=== PATIENT | female | born 1975 | race Caucasian/White ===

== ENCOUNTER 2017-07-27 17:57 | Emergency (ER) | payer SELFPAY ==
[~2017-07-27] VITALS: Ht 177.8 cm; Wt 100.0 kg
[2017-07-27 18:06] VITALS: BP 133/79; PULSE 99; RESP 20; TEMP 98.2; O2SAT 97
[2017-07-27] MEDS ORDERED: MUPI2OIN TOPICAL (18:20)
[2017-07-27] MEDS ORDERED: CEPH-460 PO (18:20)
[2017-07-27] MEDS ORDERED: ERYTOIN10 EACH EYE (18:20)
--- NOTE | 2017-07-27 18:21 | PD ---
HPI Chief Complaint: ENT Complaint Time Seen by Provider: 18:15 Travel History International Travel<30 days: No Contact w/Intl Traveler<30days: No Traveled to known affect area: No History of Present Illness HPI 42-year-old female presents to the emergency department for left ear pain that started 4 days ago. She states the current pain is 4/10, aching and throbbing. She also states that she was having some eye discharge from her eyes bilaterally. She states this is improving, but has a history of conjunctivitis with similar symptoms in the past. No visual changes. Patient has no chronic medical problems and takes no prescribed medications. She denies reporting previous hysterectomy. No exacerbating or alleviating factors. Mild severity. PFSH Past Medical History Chemotherapy: Yes (2002) Immunizations Current: Yes Past Surgical History Hysterectomy: Yes Social History Alcohol Use: No Tobacco Use: Yes Substance Use: No Allergies-Medications (Allergen,Severity, Reaction): Coded Allergies: sumatriptan (Unverified Allergy, Severe, SWELLEN TONGUE, 10/18/16) doxycycline (Unverified Allergy, Mild, ITCHY SKIN, 10/18/16) minocycline (Unverified Allergy, Mild, ITCHY SKIN, 10/18/16) tigecycline (Unverified Allergy, Mild, ITCHY SKIN, 10/18/16) Review of Systems Except as stated in HPI: all other systems reviewed are Neg Physical Exam Narrative GENERAL: Well-nourished, well-developed female patient, ambulatory. Afebrile. SKIN: Focused skin assessment warm/dry. Patient has a small abrasion to the outer left ear with some mild surrounding erythema. HEAD: Normocephalic. Atraumatic. ENT: Mucosa pink and moist. No erythema or exudates. No uvular edema. No uvular , palatal, or tonsillar deviation. Airway patent. Nasal turbinates appear normal without nasal blood, purulent drainage or septal hematoma. Left tympanic membrane is mildly erythematous. Right tympanic membrane is without erythema or perforation. EYES: No scleral icterus. No injection or drainage. PERRLA. NECK: Supple, trachea midline. No JVD or lymphadenopathy. CARDIOVASCULAR: Regular rate and rhythm without murmurs, gallops, or rubs. RESPIRATORY: Breath sounds equal bilaterally. No accessory muscle use. Lung sounds are clear to auscultation. GASTROINTESTINAL: Abdomen soft, non-tender, nondistended. MUSCULOSKELETAL: No cyanosis, or edema. BACK: Nontender without obvious deformity. No CVA tenderness. Data Data Last Documented VS Vital Signs Date Time Temp Pulse Resp B/P (MAP) Pulse Ox O2 Delivery O2 Flow Rate FiO2 07/27/17 18:06 98.2 99 20 133/79 (97) 97 MDM Medical Decision Making Medical Screen Exam Complete: Yes Emergency Medical Condition: Yes Medical Record Reviewed: Yes Differential Diagnosis Otitis media versus otitis externa versus eustachian tube dysfunction Narrative Course 42-year-old female presents to the emergency department for evaluation of left ear pain. She does have mild otitis media on exam. She also has a small abrasion with some mild surrounding erythema to the outer ear. Eyes are reassuring, However I will give the patient a prescription for erythromycin ophthalmic based on the symptoms she is telling me. She will also be discharged prescription for Keflex and mupirocin ointment. He is to follow the primary care physician return here for any acute worsening of symptoms. The patient was discharged in stable condition with instructions, including return instructions and follow up instructions. Diagnosis Primary Impression: Otitis media Qualified Codes: H66.92 - Otitis media, unspecified, left ear Additional Impression: Cellulitis of left earlobe Referrals: Primary Care Physician call for appointment Patient Instructions: Cellulitis (ED), Ear Infection (ED), General Instructions Additional Instructions: Use erythromycin eye ointment as directed. Warm compresses to bilateral eyes as needed. Take antibiotic as directed until gone. Use mupirocin ointment on outer ear abrasion. Follow-up with a primary care physician. Return to the emergency department for any acute worsening of symptoms. Med/Other Pt SpecificInfo: Prescription(s) given Scripts Mupirocin Topical (Mupirocin Topical) 2 % Oint 1 APPLIC TOPICAL BID for Mgmt Bacterial Infection, #1 TUBE 0 Refills Prov: Tennille Bonilla 07/27/17 Erythromycin Opth Oint (Erythromycin Opth Oint) 5 Mg/Gm Oint 1 APPLIC EACH EYE QID for Infection, #1 TUBE 0 Refills Prov: Tennille Bonilla 07/27/17 Cephalexin (Keflex) 500 Mg Capsule 500 MG PO Q6H for Infection for 10 Days, #40 CAP 0 Refills Prov: Tennille Bonilla 07/27/17 Disposition: 01 DISCHARGE HOME Condition: Stable Tennille Bonilla July 27, 2017 18:21
== END 2017-07-27 18:36 | disposition home or self-care (01) ==
LOC: NEPK 17:57
DX: H66.92 Otitis media, unspecified, left ear (principal); H60.12 Cellulitis of left external ear; Z72.0 Tobacco use; Z88.8 Allergy status to other drugs, medicaments and biological substances
CPT/HCPCS: 99283